=== PATIENT | male | born 2000 | race Hispanic/Latino ===

== ENCOUNTER 2019-08-21 17:45 | Emergency (ER) | payer BC ==
[2019-08-21] MEDS ORDERED: Acetaminophen 500 MG TAB ONE ×2 (17:54)
== END 2019-08-21 19:34 | disposition home or self-care (01) ==
LOC: ERS 17:45
DX: J11.1 Influenza due to unidentified influenza virus with other respiratory manifestations (principal)
CPT/HCPCS: 87804; 99283